=== PATIENT | female | born 1930 | race American Indian/Alaskan Native ===

== ENCOUNTER 2017-01-09 19:54 | Inpatient (IN) | payer MEDICARE ==
[2017-01-09 21:18] LABS: Basophils % (Auto) 0.6 % (0.0-1.8); Eosinophils % (Auto) 2.1 % (0.0-4.3); Hematocrit 29.2 % (30.3-42.9); Hemoglobin 9.5 gm/dl (10.1-14.3); Mean Corpuscular HGB Conc 32 % (30-34); Mean Corpuscular Hemoglobin 28 pg (28-32); Mean Corpuscular Volume 86 fl (79-97); Platelet Count 392 K/mm3 (140-440); Red Blood Count 3.38 M/mm3 (3.65-5.03); Red Cell Distribution Width 15.3 % (13.2-15.2); White Blood Count 7.5 K/mm3 (4.5-11.0)
--- NOTE | 2017-01-09 21:25 | Emergency Department Report ---
ED Neuro Deficit HPI - General Chief Complaint: Medical Clearance Stated Complaint: MEDICAL CLEARANCE Time Seen by Provider: 01/09/17 20:25 Source: EMS Mode of arrival: Stretcher Limitations: Physical Limitation - History of Present Illness Initial Comments: 86-year-old female with a past medical history diabetes, GERD, hypertension and recent left knee replacement presents to the hospital with transient altered mental status. Patient had left knee surgery on December 24. On December 27 she was discharged into rehabilitation facility. Daughter is at the bedside and states she was in the presence of her mom at the rehabilitation facility at 11 AM when she started to have incomprehensible speech. Patient was motioning to her daughter to check her sugar. Daughter called out to staff but prior to staff arrival to the bedside and placed a glucose tablet on the patient's tongue. Upon staff arrival glucose tablet was undissolved patient was giving a little water to help dissolve the tablet. 10 minutes later Accu-Chek read 200. Mumbling and incomprehensible speech improved and therefore patient was not sent to the ED for evaluation. Later in the evening patient had another episode of a incomprehensible speech. Glucose was not checked and instead pt was sent to the ER for evaluation. Daughter and son at the bedside reports that patient's speech has improved but is not back to normal. Patient was on aspirin prior to surgery and family is not sure if it has been reinitiated. Rehabilitation M.Rafael. started Plavix after episode today. Family denies previous history of CVA or previous Plavix use. - Related Data Home Medications: Home Medications Medication Instructions Recorded Confirmed Last Taken Aspirin/Calcium Carbonate/Mag 325 cap PO BID 01/09/17 01/09/17 1 Day Ago [Bufferin 325 mg Tablet] Docusate Sodium [Colace] 100 mg PO BID 01/09/17 01/09/17 1 Day Ago Gabapentin [Neurontin] 100 mg PO BID 01/09/17 01/09/17 1 Day Ago Insulin Lispro [HumaLOG VIAL] 1 unit SUB-Q BID 01/09/17 01/09/17 1 Day Ago RX: AtorvaSTATin [Lipitor] 20 mg PO QHS 01/09/17 01/09/17 1 Day Ago RX: Insulin NPH, Human [NovoLIN N] 10 unit PO QAM 01/09/17 01/09/17 2 Days Ago cloNIDine [Catapres] 0.2 mg PO BID 01/09/17 01/09/17 1 Day Ago Allergies/Adverse Reactions: Allergies Allergy/AdvReac Type Severity Reaction Status Date / Time No Known Allergies Allergy Unverified 01/09/17 20:12 ED Review of Systems ROS: Stated complaint: MEDICAL CLEARANCE Other details as noted in HPI Comment: All other systems reviewed and negative Other: Constitutional: No fevers Neck: Denies pain Respiratory: Denies cough wheezing shortness of breath Cardiovascular: Denies chest pain GI: Denies abdominal pain, nausea, vomiting, diarrhea : Denies dysuria Musculoskeletal: post op left knee pain Skin: Denies rash, lesions, erythema Neurologic: Denies headache ED Past Medical Hx - Past Medical History Previous Medical History?: Yes Hx Hypertension: Yes Hx CVA: No Hx Heart Attack/AMI: No Hx Congestive Heart Failure: No Hx Diabetes: Yes Hx Deep Vein Thrombosis: No Hx Pulmonary Embolism: No Hx GERD: Yes Hx Liver Disease: No Hx Renal Disease: No Hx of Cancer: No Hx Sickle Cell Disease: No Hx Arthritis: No Hx Headaches / Migraines: No Hx Seizures: No Hx Kidney Stones: No Hx Psychiatric Treatment: No Hx Asthma: No Hx COPD: No Hx Dementia: No Hx HIV: No - Surgical History Past Surgical History?: Yes Additional Surgical History: Left Knee surgery december 2016. Right knee replacement - Social History Smoking Status: Never Smoker Substance Use Type: None - Medications Home Medications: Home Medications Medication Instructions Recorded Confirmed Last Taken Type Aspirin/Calcium Carbonate/Mag 325 cap PO BID 01/09/17 01/09/17 1 Day Ago History [Bufferin 325 mg Tablet] Docusate Sodium [Colace] 100 mg PO BID 01/09/17 01/09/17 1 Day Ago History Gabapentin [Neurontin] 100 mg PO BID 01/09/17 01/09/17 1 Day Ago History Insulin Lispro [HumaLOG VIAL] 1 unit SUB-Q BID 01/09/17 01/09/17 1 Day Ago History RX: AtorvaSTATin [Lipitor] 20 mg PO QHS 01/09/17 01/09/17 1 Day Ago History RX: Insulin NPH, Human [NovoLIN N] 10 unit PO QAM 01/09/17 01/09/17 2 Days Ago History cloNIDine [Catapres] 0.2 mg PO BID 01/09/17 01/09/17 1 Day Ago History ED Neuro Physical Exam - General Limitations: Physical Limitation Suspected Stroke: Yes - NIHSS Assessment Interval: Baseline 1a. Level of Consciousness: alert 1b. LOC Questions: answers correctly 1c. LOC Commands: performs tasks correctly 2. Best Gaze: normal 3. Visual: no visual loss 4. Facial Palsy: normal symmetrical movement 5b. Motor Arm Right: no drift 5a. Motor Arm Left: no drift 6a. Motor Leg Left: no drift 6b. Motor Leg Right: no drift 7. Limb Ataxia: absent 8. Sensory: normal 9. Best Language: no aphasia 10. Dysarthria: normal 11. Extinction/Inattention: no abnormality Total Score: 0 Stroke Severity: No Stroke Symptoms - Other Other exam information: General: No limitations, patient is alert in no acute distress Head exam: Atraumatic, normocephalic Eyes exam: Normal appearance ENT: Moist mucous membrane, normal oropharynx Neck exam: Normal inspection, full range of motion, no meningismus nontender Respiratory exam: Clear to auscultation bilateral, no wheezes, rales, crackles Cardiovascular: Normal rate and rhythm, normal heart sounds Abdomen: Soft, nondistended, and nontender, with normal bowel sounds, no rebound, or guarding Extremity: Full range of motion normal inspection no deformity Back: Normal Inspection, full range of motion, no tenderness Neurologic: Alert, oriented x3, cranial nerves intact, no motor or sensory deficit Psychiatric: normal affect, normal mood Skin: Warm, dry, intact ED Course Vital Signs 01/09/17 01/09/17 20:03 22:22 Temperature 98.7 F Pulse Rate 73 Respiratory 18 Rate Blood Pressure 143/63 Blood Pressure 143/63 [Left] O2 Sat by Pulse 99 98 Oximetry - Reevaluation(s) Reevaluation #1: 01/09/17 22:34 No focal deficits on exam. Family insisted patient's mental status is not at baseline. They report that she is typically more talkative and joking but her energy level is decreased today. Patient states she's not speaking as fluently as normal. - Lab Data Result diagrams: 01/09/17 20:58 01/09/17 20:58 Lab Results 01/09/17 01/09/17 01/09/17 Range/Units 20:31 20:58 20:58 WBC 7.5 (4.5-11.0) K/mm3 RBC 3.38 L (3.65-5.03) M/mm3 Hgb 9.5 L (10.1-14.3) gm/dl Hct 29.2 L (30.3-42.9) % MCV 86 (79-97) fl MCH 28 (28-32) pg MCHC 32 (30-34) % RDW 15.3 H (13.2-15.2) % Plt Count 392 (140-440) K/mm3 Lymph % (Auto) 21.1 (13.4-35.0) % [place] % (Auto) 8.1 H (0.0-7.3) % Eos % (Auto) 2.1 (0.0-4.3) % Baso % (Auto) 0.6 (0.0-1.8) % Lymph # 1.6 (1.2-5.4) K/mm3 [place] # 0.6 (0.0-0.8) K/mm3 Eos # 0.2 (0.0-0.4) K/mm3 Baso # 0.0 (0.0-0.1) K/mm3 Seg Neutrophils % 68.1 (40.0-70.0) % Seg Neutrophils # 5.1 (1.8-7.7) K/mm3 PT (12.2-14.9) Sec. INR (0.87-1.13) APTT (24.2-36.6) Sec. Sodium 130 L (137-145) mmol/L Potassium 4.4 (3.6-5.0) mmol/L Chloride 92.9 L (98-107) mmol/L Carbon Dioxide 22 (22-30) mmol/L Anion Gap 20 mmol/L BUN 29 H (7-17) mg/dL Creatinine 0.9 (0.7-1.2) mg/dL Estimated GFR > 60 ml/min BUN/Creatinine Ratio 32.22 % Glucose 152 H (65-100) mg/dL POC Glucose 178 H (70-105) Calcium 8.9 (8.4-10.2) mg/dL Total Creatine Kinase (30-135) units/L CK-MB (CK-2) (0.0-4.0) ng/mL CK-MB (CK-2) Rel Index (0-4) Troponin T (0.00-0.029) ng/mL Urine Color (Yellow) Urine Turbidity (Clear) Urine pH (5.0-7.0) Ur Specific [place] (1.003-1.030) Urine Protein (Negative) mg/dL Urine Glucose (UA) (Negative) mg/dL Urine Ketones (Negative) mg/dL Urine Blood (Negative) Urine Nitrite (Negative) Urine Bilirubin (Negative) Urine Urobilinogen (<2.0) mg/dL Ur Leukocyte Esterase (Negative) Urine WBC (Auto) (0.0-6.0) /HPF Urine RBC (Auto) (0.0-6.0) /HPF 01/09/17 01/09/17 01/09/17 Range/Units 20:58 20:58 21:51 WBC (4.5-11.0) K/mm3 RBC (3.65-5.03) M/mm3 Hgb (10.1-14.3) gm/dl Hct (30.3-42.9) % MCV (79-97) fl MCH (28-32) pg MCHC (30-34) % RDW (13.2-15.2) % Plt Count (140-440) K/mm3 Lymph % (Auto) (13.4-35.0) % [place] % (Auto) (0.0-7.3) % Eos % (Auto) (0.0-4.3) % Baso % (Auto) (0.0-1.8) % Lymph # (1.2-5.4) K/mm3 [place] # (0.0-0.8) K/mm3 Eos # (0.0-0.4) K/mm3 Baso # (0.0-0.1) K/mm3 Seg Neutrophils % (40.0-70.0) % Seg Neutrophils # (1.8-7.7) K/mm3 PT 13.1 (12.2-14.9) Sec. INR 1.00 (0.87-1.13) APTT 22.0 L (24.2-36.6) Sec. Sodium (137-145) mmol/L Potassium (3.6-5.0) mmol/L Chloride (98-107) mmol/L Carbon Dioxide (22-30) mmol/L Anion Gap mmol/L BUN (7-17) mg/dL Creatinine (0.7-1.2) mg/dL Estimated GFR ml/min BUN/Creatinine Ratio % Glucose (65-100) mg/dL POC Glucose (70-105) Calcium (8.4-10.2) mg/dL Total Creatine Kinase 91 (30-135) units/L CK-MB (CK-2) 3.2 (0.0-4.0) ng/mL CK-MB (CK-2) Rel Index 3.5 (0-4) Troponin T 0.025 (0.00-0.029) ng/mL Urine Color Yellow (Yellow) Urine Turbidity Clear (Clear) Urine pH 5.0 (5.0-7.0) Ur Specific [place] 1.009 (1.003-1.030) Urine Protein <15 mg/dl (Negative) mg/dL Urine Glucose (UA) Neg (Negative) mg/dL Urine Ketones Neg (Negative) mg/dL Urine Blood Neg (Negative) Urine Nitrite Neg (Negative) Urine Bilirubin Neg (Negative) Urine Urobilinogen < 2.0 (<2.0) mg/dL Ur Leukocyte Esterase Neg (Negative) Urine WBC (Auto) 0.0 (0.0-6.0) /HPF Urine RBC (Auto) 0.0 (0.0-6.0) /HPF - EKG Data -: EKG Interpreted by Me (nsr [id number]) - Radiology Data Radiology results: report reviewed (ct head: chronic involutional changes, naf) - Medical Decision Making No focal deficits on exam. Labs indicate mild dehydration as evident by elevated BUN and mild hyponatremia. No signs of acute infection or intracranial hemorrhage at this time. Since family states mental status is not at baseline will admit to the hospital. IV fluids initiated. - Differential Diagnosis cva, tia, uti, hypoglycemia, encephalopathy Critical Care Time: No Critical care attestation.: If time is entered above; I have spent that time in minutes in the direct care of this critically ill patient, excluding procedure time. ED Disposition Clinical Impression: Transient speech disturbance, Diabetes, Dehydration, Hyponatremia, Anemia Disposition: OP ADMITTED IP TO THIS HOSP Is pt being admited?: Yes Condition: Stable Time of Disposition: 22:41 (Dr Tucker/hosp)
[2017-01-09 21:27] LABS: Anion Gap 20 mmol/L; BUN/Creatinine Ratio 32.22; Blood Urea Nitrogen 29 mg/dL (7-17); Calcium 8.9 mg/dL (8.4-10.2); Carbon Dioxide 22 mmol/L (22-30); Chloride 92.9 mmol/L (98-107); Glucose 152 mg/dL (65-100); Potassium 4.4 mmol/L (3.6-5.0); Sodium 130 mmol/L (137-145)
[2017-01-09 21:29] LABS: Creatine Kinase MB 3.2 ng/mL (0.0-4.0)
--- NOTE | 2017-01-09 21:38 | Cat Scan Report ---
FINAL REPORT PROCEDURE: CT HEAD/BRAIN WO CON TECHNIQUE: Computerized tomography of the head was performed without contrast material. HISTORY: slurred speech COMPARISON: No prior studies are available for comparison. FINDINGS: Skull and scalp: Normal. Paranasal sinuses: Normal. Ventricles and subarachnoid spaces: There is moderate central and cortical atrophy. There is no hydrocephalus or asymmetry.. Cerebrum: No evidence of hemorrhage, acute infarction or mass. There is chronic periventricular deep white matter ischemic gliosis. Cerebellum and brainstem: No evidence of hemorrhage, acute infarction or mass. Vasculature: Normal. Comments: None. IMPRESSION: There are chronic involutional changes. There is no acute abnormality.
[2017-01-09 22:00] LABS: Bilirubin,Urine NEG (Negative); Blood,Urine NEG (Negative); Ketones,Urine NEG (Negative); Leukocyte Esterase,Urine NEG (Negative); Nitrite,Urine NEG (Negative); Protein,Urine <15 mg/dL mg/dL (Negative); Urobilinogen,Urine < 2.0 mg/dL (<2.0)
[2017-01-09] MEDS ORDERED: NACL 0.9% 1000 ML 1,000 ML IV ONE (22:32)
--- NOTE | 2017-01-09 22:56 | History and Physical Report ---
History of Present Illness Date of examination: 01/09/17 Chief complaint: Slurred speech History of present illness: 86-year-old [place] female with past medical history significant for diabetes, GERD, hypertension, recent left knee replacement [facility] for complaints of transient slurred speech and confusion. The patient has 2 episodes. The first one happened yesterday around 11 AM and the patient thinks it was hypoglycemia and she was given glucose tablets and her blood sugar was checked and was found to be around 206. Patient was getting better. And around 6 PM the patient had also another episode of slurred speech, incoherent with some confusion that was f0r 5-10 minutes. The family decided to both to the emergency department. The family stated after stated her speech is getting better but the patient is in not at her baseline. REVIEW OF SYSTEMS: GENERAL: no weight change, no fatigue, no fever HEAD: no head ache EYES: no blurry vision, no acute visual loss EARS: no hearing loss, no discharge, no earache NOSE: no stuffiness, no sneezing, no discharge MOUTH, THROAT AND NECK: no bleeding gums, no sore throat, no swollen neck CARDIAC: no palpitations, no dyspnea on exertion, no orthopnea, no PND, no edema , no chest pain RESPIRATORY: no shortness of breath, no wheeze, no cough, no sputum, no hemoptysis, no asthma GI: no decreased appetite, no nausea, no vomiting, no dysphagia, no diarrhea, no constipation, no abdominal pain URINARY: no change in frequency, no urgency, no polyuria, no hematuria, no incontinence MUSCULOSKELETAL: no muscle weakness, no pain, no joint stiffness NEUROLOGIC: no loss of sensation/numbness, no tingling, no tremors, no weakness/ paralysis HEMATOLOGIC: no anemia, no easy bruising SKIN: no rashes ENDOCRINE: no heat/cold intolerance, no polyuria, no polydipsia, no thyroid problems, no diabetes PSYCHIATRIC: no anxiety, no depression, no suicidal ideations Past History Past Medical History: diabetes, GERD, hypertension Past Surgical History: Other (bilatertal knee replacement) Social history: full code. denies: smoking, alcohol abuse, prescription drug abuse, IV drug use Family history: denies: no significant family history Medications and Allergies Allergies Allergy/AdvReac Type Severity Reaction Status Date / Time No Known Allergies Allergy Unverified 01/09/17 20:12 Home Medications Medication Instructions Recorded Confirmed Last Taken Type Aspirin/Calcium Carbonate/Mag 325 cap PO BID 01/09/17 01/09/17 1 Day Ago History [Bufferin 325 mg Tablet] AtorvaSTATin [Lipitor] 20 mg PO QHS 01/09/17 01/09/17 1 Day Ago History Docusate Sodium [Colace] 100 mg PO BID 01/09/17 01/09/17 1 Day Ago History Gabapentin [Neurontin] 100 mg PO BID 01/09/17 01/09/17 1 Day Ago History Insulin Lispro [HumaLOG VIAL] 1 unit SUB-Q BID 01/09/17 01/09/17 1 Day Ago History Insulin NPH, Human [NovoLIN N] 10 unit PO QAM 01/09/17 01/09/17 2 Days Ago History cloNIDine [Catapres] 0.2 mg PO BID 01/09/17 01/09/17 1 Day Ago History Active Meds: Active Medications Sodium Chloride (Nacl 0.9% 1000 Ml) 1,000 mls @ 200 mls/hr IV BOLUS ONE Stop: 01/10/17 03:31 Exam - Physical Exam Narrative exam: Not in cardiopulmonary distress. The patient appeared well nourished and normally developed. Vital signs as documented. Head exam is unremarkable. No scleral icterus . Neck is without jugular venous distension, thyromegaly, or carotid bruits. Lungs are clear to auscultation. Cardiac exam reveals regular rate and Rhythm. First and second heart sounds normal. No murmurs, rubs or gallops. Abdominal exam reveals normal bowel sounds, no masses, no organomegaly and no aortic enlargement. Extremities are nonedematous and both femoral and pedal pulses are normal. [employer]: Alert and oriented 3. No focal weakness. - Constitutional Vitals: Temp Pulse Resp BP Pulse Ox 98.7 F 73 18 143/63 98 01/09/17 20:03 01/09/17 20:03 01/09/17 20:03 01/09/17 20:03 01/09/17 22:22 Results - Labs CBC & Chem 7: 01/09/17 20:58 01/09/17 20:58 Labs: Laboratory Last Values WBC 7.5 K/mm3 (4.5-11.0) 01/09/17 20:58 RBC 3.38 M/mm3 (3.65-5.03) L 01/09/17 20:58 Hgb 9.5 gm/dl (10.1-14.3) L 01/09/17 20:58 Hct 29.2 % (30.3-42.9) L 01/09/17 20:58 MCV 86 fl (79-97) 01/09/17 20:58 MCH 28 pg (28-32) 01/09/17 20:58 MCHC 32 % (30-34) 01/09/17 20:58 RDW 15.3 % (13.2-15.2) H 01/09/17 20:58 Plt Count 392 K/mm3 (140-440) 01/09/17 20:58 Lymph % (Auto) 21.1 % (13.4-35.0) 01/09/17 20:58 [place] % (Auto) 8.1 % (0.0-7.3) H 01/09/17 20:58 Eos % (Auto) 2.1 % (0.0-4.3) 01/09/17 20:58 Baso % (Auto) 0.6 % (0.0-1.8) 01/09/17 20:58 Lymph # 1.6 K/mm3 (1.2-5.4) 01/09/17 20:58 [place] # 0.6 K/mm3 (0.0-0.8) 01/09/17 20:58 Eos # 0.2 K/mm3 (0.0-0.4) 01/09/17 20:58 Baso # 0.0 K/mm3 (0.0-0.1) 01/09/17 20:58 Seg Neutrophils % 68.1 % (40.0-70.0) 01/09/17 20:58 Seg Neutrophils # 5.1 K/mm3 (1.8-7.7) 01/09/17 20:58 PT 13.1 Sec. (12.2-14.9) 01/09/17 20:58 INR 1.00 (0.87-1.13) 01/09/17 20:58 APTT 22.0 Sec. (24.2-36.6) L 01/09/17 20:58 Sodium 130 mmol/L (137-145) L 01/09/17 20:58 Potassium 4.4 mmol/L (3.6-5.0) 01/09/17 20:58 Chloride 92.9 mmol/L (98-107) L 01/09/17 20:58 Carbon Dioxide 22 mmol/L (22-30) 01/09/17 20:58 Anion Gap 20 mmol/L 01/09/17 20:58 BUN 29 mg/dL (7-17) H 01/09/17 20:58 Creatinine 0.9 mg/dL (0.7-1.2) 01/09/17 20:58 Estimated GFR > 60 ml/min 01/09/17 20:58 BUN/Creatinine Ratio 32.22 % 01/09/17 20:58 Glucose 152 mg/dL (65-100) H 01/09/17 20:58 POC Glucose 178 (70-105) H 01/09/17 20:31 Calcium 8.9 mg/dL (8.4-10.2) 01/09/17 20:58 Total Creatine Kinase 91 units/L (30-135) 01/09/17 20:58 CK-MB (CK-2) 3.2 ng/mL (0.0-4.0) 01/09/17 20:58 CK-MB (CK-2) Rel Index 3.5 (0-4) 01/09/17 20:58 Troponin T 0.025 ng/mL (0.00-0.029) 01/09/17 20:58 Urine Color Yellow (Yellow) 01/09/17 21:51 Urine Turbidity Clear (Clear) 01/09/17 21:51 Urine pH 5.0 (5.0-7.0) 01/09/17 21:51 Ur Specific [place] 1.009 (1.003-1.030) 01/09/17 21:51 Urine Protein <15 mg/dl mg/dL (Negative) 01/09/17 21:51 Urine Glucose (UA) Neg mg/dL (Negative) 01/09/17 21:51 Urine Ketones Neg mg/dL (Negative) 01/09/17 21:51 Urine Blood Neg (Negative) 01/09/17 21:51 Urine Nitrite Neg (Negative) 01/09/17 21:51 Urine Bilirubin Neg (Negative) 01/09/17 21:51 Urine Urobilinogen < 2.0 mg/dL (<2.0) 01/09/17 21:51 Ur Leukocyte Esterase Neg (Negative) 01/09/17 21:51 Urine WBC (Auto) 0.0 /HPF (0.0-6.0) 01/09/17 21:51 Urine RBC (Auto) 0.0 /HPF (0.0-6.0) 01/09/17 21:51 Assessment and Plan Assessment and plan: TIA -CT head was negative - We will do workup for stroke ; bilateral carotid Doppler , MRI, echo - Continue patient's Plavix and aspirin Diabetes mellitus type 2 - Sliding-scale insulin GERD - Famotidine Hypertension - Continue home medication Anemia - Continue to follow Dehydration -IV fluid DVT prophylaxis - Lovenox Disposition - Admitted to telemetry. Advance Directives: Yes VTE prophylaxis?: Chemical Plan of care discussed with patient/family: Yes
--- NOTE | 2017-01-10 01:19 | Admit Criteria Form ---
Admission Criteria Documentation: NEUROLOGY GRG Clinical Indications for Admission to Inpatient Care (Place ' X' for any and all applicable criteria): Hospital admission is needed for appropriate care of the patient because of ANY ONE of the following: [ ]I. New-onset or worsening altered mental status remaining after emergency or observation level care (as appropriate) (9)(10)(11) [ ]II. Severe FLOUR MIXER infections or inflammatory conditions, including ANY ONE of the following(1)(2)(3): [ ]a) Intracranial abscess [ ]b) Spinal abscess or myelitis [ ]c) Tuberculous or other nonbacterial, nonviral FLOUR MIXER infection(8) [ ]III. Encephalitis(1)(2)(3) [ ]IV. Status epilepticus or repetitive seizures not controlled with emergent treatment [A] (7)(8) [ ]V. Transient alteration in consciousness with high-risk etiology; examples include (12)(13): [ ]a) Cardiovascular source [ ]b) Cataplexy [ ]. Cerebral aneurysm requiring ANY ONE of the following(14): [ ]a) IV antihypertensives or vasoactive agents [ ]b) Sedation and analgesia for suspected leak [ ]c) Need for external ventricular drainage and cerebral perfusion pressure monitoring [ ]d) Emergent evaluation to determine need for surgical clipping or endovascular coiling by interventional radiology. If surgery is required ( Also use Craniotomy, Supratentorial, for Surgery of Bleeding Intracranial Aneurysm (for bleeding aneurysm) or Craniotomy, Supratentorial (for nonbleeding aneurysm) as appropriate. [ ]VII. Altered mental status that is severe or persistent(16) [ ]VIII New-onset severe neurologic findings requiring inpatient care; examples include: [ ]a) Papilledema [ ]b) Cerebral edema [ ]c) Mass effect on imaging [ ]IX. New-onset severe neurologic symptom requiring inpatient care indicated by ANY ONE of the following: [ ]a) Aphasia(15) [ ]b) Weakness (grade 3 or less) [ ]c) Paralysis (eg, hemiplegia) [ ]d) Spasticity(16) [ ]e) Ataxia(17) [ ]f) Amnesia(18) [ ]g) Involuntary movements(19) [ ]h) Vertigo [ ]i) Other severe neurologic symptom not treatable at alternative level of care (eg, observation care) [ ]X. Guillain-Oacoma syndrome(20) [ ]XI. Myasthenia gravis crisis or inpatient monitoring need as indicated by ANY ONE of the following(21): [ ]a) Inadequate airway protection [ ]b) Respiratory insufficiency requiring intubation or inpatient. monitoring [ ]c) Progressive dysphagia with failure to thrive [ ]d) Intensive treatment (eg, course of plasmapheresis) with inadequate outpatient situation to monitor patients status [ ]XII. Multiple sclerosis or other acute demyelinating disease requiring inpatient care as indicated by ANY ONE of the following (22)(23): [ ]a) Acute severe deterioration requiring inpatient treatment (eg, IV steroids, plasmapheresis, close observation) [ ]b) Acute complication requiring inpatient care (eg, sepsis, severe decubitus, aspiration) [ ]XIII. Intracranial hypertension (eg, pseudotumor cerebri) requiring inpatient care (eg, acute visual loss, inadequate oral intake) (24) [ ]XIV.Parkinson disease requiring inpatient care (Also use Optimal Recovery Care Criteria or General Recovery Criteria as appropriate) indicated by ANY ONE of the following(25): [ ]a) Infection (eg, aspiration pneumonia) not treatable at alternative level of care [ ]b) Volume depletion not responsive to emergency and observation care treatment (as appropriate) [ ]c) Life-threatening agitation or psychotic behavior not treatable on emergency, observation care, or alternative level (eg, residential) basis [ ]d) Severe medication withdrawal effects (eg, freezing, neuroleptic malignant syndrome) not responsive to emergency and observation care treatment (as appropriate) [ ]e) Other severe manifestation not treatable at alternative level of care [ ]XV.Amyotrophic lateral sclerosis with inpatient care needs as indicated by ANY ONE of the following(26): [ ]a) Acute complications requiring inpatient care (Use Optimal Recovery Care Criteria or General Recovery Criteria as appropriate); examples include: [ ]i) Aspiration pneumonia [ ]ii) Sepsis [ ]b) Dehydration or hypovolemia (not responsive to emergency and observation care treatment as appropriate) AND artificial support desired [ ]c) Inadequate airway protection AND artificial support desired [ ]d) Severe ventilatory insufficiency AND artificial support desired [ ]XVI.Severe myopathy, neuropathy, or other neuromuscular disease as indicated by ANY ONE of the following: [ ]a) New-onset severe diffuse weakness (eg, strength 3/5 or less) [ ]b) Severe dysphagia [ ]c) Dyspnea at rest or with minimal exertion (new) [ ]d) Inadequate airway protection [ ]e) Inadequate ventilation as indicated by ANY ONE of the following : [ ]i) Partial pressure of carbon dioxide greater than 44 mm Hg (5.9 kPa) (new) [ ]ii) Reduced peak expiratory flow rate (new) [ ]iii) Vital capacity less than 50% of predicted ( less than 15 mL/kg) [ ]iv) Peak inspiratory force less negative than -30 cm H20 (-2942 Pa) [ ]XVII.Complications of congenital or degenerative disease (eg, infection, seizures, dehydration, injury) not responsive to emergency and observation care treatment (as appropriate ) [C](16)(29)(30) [ ]XVIII.Suspected or confirmed nerve or muscle toxic injury, including ANY ONE of the following: [ ]a) Rhabdomyolysis(31) [ ]b) Botulism(32) [ ]c) Other severe toxin-induced sign or symptom [ X]XIX. Neurologic trauma requiring inpatient treatment (medical) indicated by ANY ONE of the following(33)(34): [ ]a) Vital signs or neurologic signs more frequently than every 4 hours [ ]b) Hyperosmolar therapy [ ]c) Respiratory monitoring [ ]d) Intracranial pressure monitoring and treatment [ ]e) Stabilization and immobilization device placement (eg, braces, body jacket) [ ]f) Intubation & mechanical ventilation for airway protection or therapeutic hyperventilation [X ]g) Other treatment or monitoring needed that requires inpatient level of care [ ]XX.Complications of neurologic devices (eg, ventricular shunt, neurostimulator) requiring ANY ONE of the following(35)(36): [ ]a) IV antibiotics with monitoring while awaiting culture results [ ]b) Monitoring for hydrocephalus [ ]XXI Vasculitis with ANY ONE of the following(4)(5): [ ]a) Altered mental status [ ]b) Psychosis [ ]c) Seizures [ ]XXII. Neurology condition and ALL of the following: [ ]a) Symptom or finding for which emergency and observation care have failed or are not considered appropriate (Use General Criteria: Observation Care as appropriate) [ ]b) Presence of ANY ONE of the following: [ ]i) A General Admission Criteria [ ]ii A Pediatric General Admission Criteria The original [facility] content created by [facility] has been revised. The portions of the content which have been revised are identified through the use of italic text or in bold, and [facility] has neither reviewed nor approved the modified material. All other unmodified content is copyright [facility] Please see references footnoted in the original [facility] edition 2016 Admission Criteria Met: Yes
[2017-01-10] MEDS ORDERED: D50W (25GM) IV PRN (02:06)
[2017-01-10] MEDS: LOVENOX SUB-Q SCH (10:35)
[2017-01-10] MEDS ORDERED: FLUARIX QUAD 2016-2017(36 MOS+) IM ONE (12:00)
[2017-01-10] MEDS ORDERED: PNEUMOVAX 23 IM ONE (12:00)
--- NOTE | 2017-01-10 14:03 | Magnetic Resonance Report ---
MRA HEAD WITHOUT CONTRAST INDICATION: CVA. COMPARISON: None similar. FINDINGS: MRA of the head performed without intravenous contrast and demonstrates no evidence of flow-limiting stenosis, occlusion or vascular malformation. Please note that detection of aneurysms less than 5 mm is limited on this exam. Bilateral PCOMs noted. Patent vertebrobasilar tree with left vertebral artery dominant. CONCLUSION: Normal study of the [place]. Thank you for the opportunity to participate in this patient's care.
--- NOTE | 2017-01-10 14:15 | Magnetic Resonance Report ---
MRA NECK WITH CONTRAST: INDICATION: CVA. COMPARISON: None similar. FINDINGS: Noncontrast MRA of the neck attempted, though extremely limited due to motion artifact. Aortic arch not included. Imaged innominate and subclavian arteries appear grossly patent as also bilateral vertebral arteries. Left vertebral artery dominant. Patent bilateral common and internal carotid arteries without significant carotid stenosis suspected. Bilateral external carotid atherosclerotic changes not excluded. Moderate right and small left pleural effusions incidentally noted. CONCLUSION: 1. Normal MRA of the neck without significant stenosis on this limited exam, as described. Please also correlate clinically and with carotid ultrasound, as appropriate. 2. Right greater than left pleural effusions. Thank you for the opportunity to participate in this patient's care.
--- NOTE | 2017-01-10 14:18 | Magnetic Resonance Report ---
MRI BRAIN WITHOUT CONTRAST INDICATION: TIA. COMPARISON: Head CT from last night. FINDINGS: Noncontrast multiplanar and multisequence MRI of the brain demonstrates small right frontal-temporal subcortical acute restricted diffusion with the linear component measuring approximately 1.4 cm, axial diffusion series 4, image 24 while small right frontal deeper white matter foci also seen, images 25-27 measuring up to 0.7 cm, image 26. No acute hemorrhage, mass effect or midline shift. No abnormal extra axial masses or fluid collections. Symmetric, age-appropriate ventricles and sulci with [id number] periventricular and white matter FLAIR and T2 weighted hyperintensities. Normal major intracranial vascular flow voids. Normal posterior fossa with preserved basilar cisterns and symmetric seventh and eighth nerve complexes. Bilateral cataract surgery. Mild ethmoid sinusitis bilaterally. Grossly clear remained imaged paranasal sinuses and mastoid air cells. Partially empty sella. No Chiari malformation. Abnormal signal along the dens near its base suspected with mild anterior angulation and increased surrounding complex or soft tissue signal is suspicious for a fracture, though its age or etiology uncertain on this imaging alone. Corresponding similar angulated course of the proximal cord also seen as on sagittal image 11, amongst others. Further lower cervical spondylosis also incompletely imaged. CONCLUSION: 1. Acute infarctions involving the right frontal lobe, as described. 2. Abnormal MRI appearance about the atlantoaxial junction, as described. Neck stabilization and neurosurgical correlation may also be obtained, as appropriate. Dedicated cervical spine CT would be further informative, if not previously obtained elsewhere. I phoned the above results to Dr. Rodriguez, 1:45 PM, 01/10/2017. Thank you for the opportunity to participate in this patient's care.
--- NOTE | 2017-01-10 14:37 | Progress Note ---
Assessment and Plan Assessment and plan: 1. Acute CVA. MRI revealed acute infarctions involving the right frontal lobe. Normal MRA echocardiogram and carotid Dopplers are pending. 2. C2 fracture. MRI reveals abnormal signal along the denssuspected with mild anterior angulation and increase surrounding complex or soft tissue signal suspicious for a fracture. We'll obtain a cervical CT scan. Cervical collar. Neurosurgical evaluation. 3. Diabetes mellitus type II. Continue sliding-scale and Accu-Cheks. 4. Hypertension. Resume antihypertensive medications. 5. Anemia. Continue to follow H&H. History Interval history: 86-year-old Citizen Of [place] female with past medical history significant for diabetes, GERD, hypertension, recent left knee replacement presented from the correction to the emergency department for complaints of transient slurred speech and confusion. Patient was admitted with diagnosis of acute CVA. Hospitalist Physical - Constitutional Vitals: Temp Pulse Resp BP Pulse Ox 98.2 F 82 14 142/70 98 01/10/17 07:34 01/10/17 07:34 01/10/17 07:34 01/10/17 07:34 01/10/17 07:34 General appearance: Present: no acute distress, well-nourished - EENT Eyes: Present: PERRL, EOM intact ENT: hearing intact, clear oral mucosa, dentition normal - Neck Neck: Present: supple, normal ROM - Respiratory Respiratory effort: normal Respiratory: bilateral: CTA - Cardiovascular Rhythm: regular Heart Sounds: Present: S1 & S2. Absent: gallop, rub - Extremities Extremities: no ischemia, No edema, Full ROM - Abdominal General gastrointestinal: soft, non-tender, non-distended, normal bowel sounds - Integumentary Integumentary: Present: clear, warm, dry - Neurologic Neurologic: CNII-XII intact, moves all extremities Results - Labs CBC & Chem 7: 01/09/17 20:58 01/09/17 20:58 Labs: Laboratory Last Values WBC 7.5 K/mm3 (4.5-11.0) 01/09/17 20:58 RBC 3.38 M/mm3 (3.65-5.03) L 01/09/17 20:58 Hgb 9.5 gm/dl (10.1-14.3) L 01/09/17 20:58 Hct 29.2 % (30.3-42.9) L 01/09/17 20:58 MCV 86 fl (79-97) 01/09/17 20:58 MCH 28 pg (28-32) 01/09/17 20:58 MCHC 32 % (30-34) 01/09/17 20:58 RDW 15.3 % (13.2-15.2) H 01/09/17 20:58 Plt Count 392 K/mm3 (140-440) 01/09/17 20:58 Lymph % (Auto) 21.1 % (13.4-35.0) 01/09/17 20:58 [place] % (Auto) 8.1 % (0.0-7.3) H 01/09/17 20:58 Eos % (Auto) 2.1 % (0.0-4.3) 01/09/17 20:58 Baso % (Auto) 0.6 % (0.0-1.8) 01/09/17 20:58 Lymph # 1.6 K/mm3 (1.2-5.4) 01/09/17 20:58 [place] # 0.6 K/mm3 (0.0-0.8) 01/09/17 20:58 Eos # 0.2 K/mm3 (0.0-0.4) 01/09/17 20:58 Baso # 0.0 K/mm3 (0.0-0.1) 01/09/17 20:58 Seg Neutrophils % 68.1 % (40.0-70.0) 01/09/17 20:58 Seg Neutrophils # 5.1 K/mm3 (1.8-7.7) 01/09/17 20:58 PT 13.1 Sec. (12.2-14.9) 01/09/17 20:58 INR 1.00 (0.87-1.13) 01/09/17 20:58 APTT 22.0 Sec. (24.2-36.6) L 01/09/17 20:58 Sodium 130 mmol/L (137-145) L 01/09/17 20:58 Potassium 4.4 mmol/L (3.6-5.0) 01/09/17 20:58 Chloride 92.9 mmol/L (98-107) L 01/09/17 20:58 Carbon Dioxide 22 mmol/L (22-30) 01/09/17 20:58 Anion Gap 20 mmol/L 01/09/17 20:58 BUN 29 mg/dL (7-17) H 01/09/17 20:58 Creatinine 0.9 mg/dL (0.7-1.2) 01/09/17 20:58 Estimated GFR > 60 ml/min 01/09/17 20:58 BUN/Creatinine Ratio 32.22 % 01/09/17 20:58 Glucose 152 mg/dL (65-100) H 01/09/17 20:58 POC Glucose 178 (70-105) H 01/09/17 20:31 Hemoglobin A1c 9.1 % (4-6) H 01/10/17 02:21 Calcium 8.9 mg/dL (8.4-10.2) 01/09/17 20:58 Total Creatine Kinase 91 units/L (30-135) 01/09/17 20:58 CK-MB (CK-2) 3.2 ng/mL (0.0-4.0) 01/09/17 20:58 CK-MB (CK-2) Rel Index 3.5 (0-4) 01/09/17 20:58 Troponin T 0.025 ng/mL (0.00-0.029) 01/09/17 20:58 Triglycerides 49 mg/dL (2-149) 01/10/17 02:21 Cholesterol 116 mg/dL (50-199) 01/10/17 02:21 LDL Cholesterol Direct 60 mg/dL (50-130) 01/10/17 02:21 HDL Cholesterol 47 mg/dL (40-59) 01/10/17 02:21 Cholesterol/HDL Ratio 2.46 % 01/10/17 02:21 Urine Color Yellow (Yellow) 01/09/17 21:51 Urine Turbidity Clear (Clear) 01/09/17 21:51 Urine pH 5.0 (5.0-7.0) 01/09/17 21:51 Ur Specific [place] 1.009 (1.003-1.030) 01/09/17 21:51 Urine Protein <15 mg/dl mg/dL (Negative) 01/09/17 21:51 Urine Glucose (UA) Neg mg/dL (Negative) 01/09/17 21:51 Urine Ketones Neg mg/dL (Negative) 01/09/17 21:51 Urine Blood Neg (Negative) 01/09/17 21:51 Urine Nitrite Neg (Negative) 01/09/17 21:51 Urine Bilirubin Neg (Negative) 01/09/17 21:51 Urine Urobilinogen < 2.0 mg/dL (<2.0) 01/09/17 21:51 Ur Leukocyte Esterase Neg (Negative) 01/09/17 21:51 Urine WBC (Auto) 0.0 /HPF (0.0-6.0) 01/09/17 21:51 Urine RBC (Auto) 0.0 /HPF (0.0-6.0) 01/09/17 21:51
[2017-01-10] MEDS ORDERED: NOVOLOG SUB-Q SCH (22:00)
[2017-01-10] MEDS: ZOCOR PO SCH (22:11)
--- NOTE | 2017-01-11 01:39 | Cat Scan Report ---
FINAL REPORT PROCEDURE: CT CERVICAL SPINE WO CON TECHNIQUE: Computerized tomography of the cervical spine was performed from the skull base to T1 without contrast material. HISTORY: Neck pain, possible fracture COMPARISON: No prior studies are available for comparison. FINDINGS: There is mild motion artifact on this study. The heights of the vertebral segments are maintained. There is significant loss of disc space height at the C3-4, C4-5, C5-6 and C6-7 levels. Moderate spur formation off of the vertebral bodies and the facets is identified from the C2 through the C7 vertebral levels. Mild circumferential bulging discs are identified at the C3-4, C4-5, C5-6 and C6-7 levels. This combined with spur formation causes some impingement upon the cervical cord at all levels. There is bilateral neuroforamen stenosis at all levels. There is no evidence of an acute fracture or dislocation of the cervical spine. If further evaluation is required MRI may be appropriate. IMPRESSION: There is no evidence of an acute fracture or dislocation of the cervical spine. Minimal motion artifact is identified on this study. 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 Minimal spinal canal stenosis identified from the C3-4 through the C6-7 levels. If further evaluation of the cervical spine is required MRI may be of benefit..
[2017-01-11] MEDS: PLAVIX PO SCH (10:26)
[2017-01-11] MEDS: LOVENOX SUB-Q SCH (10:26)
--- NOTE | 2017-01-11 11:11 | Progress Note ---
Assessment and Plan Assessment and plan: 1. Acute CVA. MRI revealed acute infarctions involving the right frontal lobe. Normal MRA. Echocardiogram revealed global left ventricular systolic function at lower limits of normal with an EF of 50-55%. There is no nasal septal hypertrophy without evidence of systolic anterior motion. Moderate concentric left ventricular hypertrophy and mild to moderate aortic stenosis. There is also moderate to severe mitral regurgitation and moderate tricuspid regurgitation. The right ventricular systolic pressure is calculated at 65 mmHg with evidence of severe pulmonary hypertension. Carotid ultrasound less than 50% stenosis bilaterally. Await PT evaluation. 2. ? C2 fracture. MRI reveals abnormal signal along the dens suspected with mild anterior angulation and increase surrounding complex or soft tissue signal suspicious for a fracture. However, cervical CT scan was found to be negative. 3. Severe pulmonary hypertension. Consider pulmonary consultation. 4. Diabetes mellitus type II. Continue sliding-scale and Accu-Cheks. 5. Hypertension. Resume antihypertensive medications. 6. Anemia. Continue to follow H&H. History Interval history: 86-year-old [place] female with past medical history significant for diabetes, GERD, hypertension, recent left knee replacement presented from the intermediate to the emergency department for complaints of transient slurred speech and confusion. Patient was admitted with diagnosis of acute CVA. Hospitalist Physical - Constitutional Vitals: Temp Pulse Resp BP Pulse Ox 99.2 F 85 15 131/74 100 01/11/17 07:45 01/11/17 07:45 01/11/17 07:45 01/11/17 07:45 01/11/17 07:45 General appearance: Present: no acute distress, well-nourished - EENT Eyes: Present: PERRL, EOM intact ENT: hearing intact, clear oral mucosa, dentition normal - Neck Neck: Present: supple, normal ROM - Respiratory Respiratory effort: normal Respiratory: bilateral: CTA - Cardiovascular Rhythm: regular Heart Sounds: Present: S1 & S2. Absent: gallop, rub - Extremities Extremities: no ischemia, No edema, Full ROM - Abdominal General gastrointestinal: soft, non-tender, non-distended, normal bowel sounds - Integumentary Integumentary: Present: clear, warm, dry - Neurologic Neurologic: CNII-XII intact, moves all extremities Results - Labs CBC & Chem 7: 01/09/17 20:58 01/09/17 20:58 Labs: Laboratory Last Values WBC 7.5 K/mm3 (4.5-11.0) 01/09/17 20:58 RBC 3.38 M/mm3 (3.65-5.03) L 01/09/17 20:58 Hgb 9.5 gm/dl (10.1-14.3) L 01/09/17 20:58 Hct 29.2 % (30.3-42.9) L 01/09/17 20:58 MCV 86 fl (79-97) 01/09/17 20:58 MCH 28 pg (28-32) 01/09/17 20:58 MCHC 32 % (30-34) 01/09/17 20:58 RDW 15.3 % (13.2-15.2) H 01/09/17 20:58 Plt Count 392 K/mm3 (140-440) 01/09/17 20:58 Lymph % (Auto) 21.1 % (13.4-35.0) 01/09/17 20:58 [place] % (Auto) 8.1 % (0.0-7.3) H 01/09/17 20:58 Eos % (Auto) 2.1 % (0.0-4.3) 01/09/17 20:58 Baso % (Auto) 0.6 % (0.0-1.8) 01/09/17 20:58 Lymph # 1.6 K/mm3 (1.2-5.4) 01/09/17 20:58 [place] # 0.6 K/mm3 (0.0-0.8) 01/09/17 20:58 Eos # 0.2 K/mm3 (0.0-0.4) 01/09/17 20:58 Baso # 0.0 K/mm3 (0.0-0.1) 01/09/17 20:58 Seg Neutrophils % 68.1 % (40.0-70.0) 01/09/17 20:58 Seg Neutrophils # 5.1 K/mm3 (1.8-7.7) 01/09/17 20:58 PT 13.1 Sec. (12.2-14.9) 01/09/17 20:58 INR 1.00 (0.87-1.13) 01/09/17 20:58 APTT 22.0 Sec. (24.2-36.6) L 01/09/17 20:58 Sodium 130 mmol/L (137-145) L 01/09/17 20:58 Potassium 4.4 mmol/L (3.6-5.0) 01/09/17 20:58 Chloride 92.9 mmol/L (98-107) L 01/09/17 20:58 Carbon Dioxide 22 mmol/L (22-30) 01/09/17 20:58 Anion Gap 20 mmol/L 01/09/17 20:58 BUN 29 mg/dL (7-17) H 01/09/17 20:58 Creatinine 0.9 mg/dL (0.7-1.2) 01/09/17 20:58 Estimated GFR > 60 ml/min 01/09/17 20:58 BUN/Creatinine Ratio 32.22 % 01/09/17 20:58 Glucose 152 mg/dL (65-100) H 01/09/17 20:58 POC Glucose 144 (70-105) H 01/11/17 05:51 Hemoglobin A1c 9.1 % (4-6) H 01/10/17 02:21 Calcium 8.9 mg/dL (8.4-10.2) 01/09/17 20:58 Total Creatine Kinase 91 units/L (30-135) 01/09/17 20:58 CK-MB (CK-2) 3.2 ng/mL (0.0-4.0) 01/09/17 20:58 CK-MB (CK-2) Rel Index 3.5 (0-4) 01/09/17 20:58 Troponin T 0.025 ng/mL (0.00-0.029) 01/09/17 20:58 Triglycerides 49 mg/dL (2-149) 01/10/17 02:21 Cholesterol 116 mg/dL (50-199) 01/10/17 02:21 LDL Cholesterol Direct 60 mg/dL (50-130) 01/10/17 02:21 HDL Cholesterol 47 mg/dL (40-59) 01/10/17 02:21 Cholesterol/HDL Ratio 2.46 % 01/10/17 02:21 Urine Color Yellow (Yellow) 01/09/17 21:51 Urine Turbidity Clear (Clear) 01/09/17 21:51 Urine pH 5.0 (5.0-7.0) 01/09/17 21:51 Ur Specific [place] 1.009 (1.003-1.030) 01/09/17 21:51 Urine Protein <15 mg/dl mg/dL (Negative) 01/09/17 21:51 Urine Glucose (UA) Neg mg/dL (Negative) 01/09/17 21:51 Urine Ketones Neg mg/dL (Negative) 01/09/17 21:51 Urine Blood Neg (Negative) 01/09/17 21:51 Urine Nitrite Neg (Negative) 01/09/17 21:51 Urine Bilirubin Neg (Negative) 01/09/17 21:51 Urine Urobilinogen < 2.0 mg/dL (<2.0) 01/09/17 21:51 Ur Leukocyte Esterase Neg (Negative) 01/09/17 21:51 Urine WBC (Auto) 0.0 /HPF (0.0-6.0) 01/09/17 21:51 Urine RBC (Auto) 0.0 /HPF (0.0-6.0) 01/09/17 21:51
[2017-01-11] MEDS: TYLENOL PO PRN ×2 (13:38→22:30)
[2017-01-11] MEDS: NOVOLOG SUB-Q SCH ×3 (13:39→22:36)
[2017-01-11] MEDS: ZOCOR PO SCH (22:31)
[2017-01-12] MEDS: NOVOLOG SUB-Q SCH ×4 (07:30→22:33)
[2017-01-12] MEDS: LOVENOX SUB-Q SCH (09:50)
[2017-01-12] MEDS: PLAVIX PO SCH (09:50)
--- NOTE | 2017-01-12 10:09 | Progress Note ---
Assessment and Plan Assessment and plan: 1. Acute CVA. MRI revealed acute infarctions involving the right frontal lobe. Normal MRA. Echocardiogram revealed global left ventricular systolic function at lower limits of normal with an EF of 50-55%. There is basal septal hypertrophy without evidence of systolic anterior motion. Moderate concentric left ventricular hypertrophy and mild to moderate aortic stenosis. There is also moderate to severe mitral regurgitation and moderate tricuspid regurgitation. The right ventricular systolic pressure is calculated at 65 mmHg with evidence of severe pulmonary hypertension. Carotid ultrasound less than 50% stenosis bilaterally. Await PT evaluation to determine discharge plan. 2. Severe mitral regurgitation. Consider cardiology consultation. However, this may be followed up as an outpatient. 3. Severe pulmonary hypertension. Consider pulmonary consultation. However, this may be followed up as an outpatient. 4. Diabetes mellitus type II. Continue sliding-scale and Accu-Cheks. 5. Hypertension. Resume antihypertensive medications. 6. Anemia. Continue to follow H&H. History Interval history: 86-year-old Maldivian female with past medical history significant for diabetes, GERD, hypertension, recent left knee replacement presented from the long term to the emergency department for complaints of transient slurred speech and confusion. Patient was admitted with diagnosis of acute CVA. Patient reports generalized weakness and poor appetite this morning. Hospitalist Physical - Constitutional Vitals: Temp Pulse Resp BP Pulse Ox 98.6 F 91 H 22 171/71 98 01/12/17 07:20 01/12/17 07:20 01/12/17 07:20 01/12/17 07:20 01/12/17 07:20 General appearance: Present: no acute distress, well-nourished - EENT Eyes: Present: PERRL, EOM intact ENT: hearing intact, clear oral mucosa, dentition normal - Neck Neck: Present: supple, normal ROM - Respiratory Respiratory effort: normal Respiratory: bilateral: CTA - Cardiovascular Rhythm: regular Heart Sounds: Present: S1 & S2. Absent: gallop, rub - Extremities Extremities: no ischemia, No edema, Full ROM - Abdominal General gastrointestinal: soft, non-tender, non-distended, normal bowel sounds - Integumentary Integumentary: Present: clear, warm, dry - Neurologic Neurologic: CNII-XII intact, moves all extremities Results - Labs CBC & Chem 7: 01/09/17 20:58 01/09/17 20:58 Labs: Laboratory Last Values WBC 7.5 K/mm3 (4.5-11.0) 01/09/17 20:58 RBC 3.38 M/mm3 (3.65-5.03) L 01/09/17 20:58 Hgb 9.5 gm/dl (10.1-14.3) L 01/09/17 20:58 Hct 29.2 % (30.3-42.9) L 01/09/17 20:58 MCV 86 fl (79-97) 01/09/17 20:58 MCH 28 pg (28-32) 01/09/17 20:58 MCHC 32 % (30-34) 01/09/17 20:58 RDW 15.3 % (13.2-15.2) H 01/09/17 20:58 Plt Count 392 K/mm3 (140-440) 01/09/17 20:58 Lymph % (Auto) 21.1 % (13.4-35.0) 01/09/17 20:58 [place] % (Auto) 8.1 % (0.0-7.3) H 01/09/17 20:58 Eos % (Auto) 2.1 % (0.0-4.3) 01/09/17 20:58 Baso % (Auto) 0.6 % (0.0-1.8) 01/09/17 20:58 Lymph # 1.6 K/mm3 (1.2-5.4) 01/09/17 20:58 [place] # 0.6 K/mm3 (0.0-0.8) 01/09/17 20:58 Eos # 0.2 K/mm3 (0.0-0.4) 01/09/17 20:58 Baso # 0.0 K/mm3 (0.0-0.1) 01/09/17 20:58 Seg Neutrophils % 68.1 % (40.0-70.0) 01/09/17 20:58 Seg Neutrophils # 5.1 K/mm3 (1.8-7.7) 01/09/17 20:58 PT 13.1 Sec. (12.2-14.9) 01/09/17 20:58 INR 1.00 (0.87-1.13) 01/09/17 20:58 APTT 22.0 Sec. (24.2-36.6) L 01/09/17 20:58 Sodium 130 mmol/L (137-145) L 01/09/17 20:58 Potassium 4.4 mmol/L (3.6-5.0) 01/09/17 20:58 Chloride 92.9 mmol/L (98-107) L 01/09/17 20:58 Carbon Dioxide 22 mmol/L (22-30) 01/09/17 20:58 Anion Gap 20 mmol/L 01/09/17 20:58 BUN 29 mg/dL (7-17) H 01/09/17 20:58 Creatinine 0.9 mg/dL (0.7-1.2) 01/09/17 20:58 Estimated GFR > 60 ml/min 01/09/17 20:58 BUN/Creatinine Ratio 32.22 % 01/09/17 20:58 Glucose 152 mg/dL (65-100) H 01/09/17 20:58 POC Glucose 129 (70-105) H 01/12/17 05:31 Hemoglobin A1c 9.1 % (4-6) H 01/10/17 02:21 Calcium 8.9 mg/dL (8.4-10.2) 01/09/17 20:58 Total Creatine Kinase 91 units/L (30-135) 01/09/17 20:58 CK-MB (CK-2) 3.2 ng/mL (0.0-4.0) 01/09/17 20:58 CK-MB (CK-2) Rel Index 3.5 (0-4) 01/09/17 20:58 Troponin T 0.025 ng/mL (0.00-0.029) 01/09/17 20:58 Triglycerides 49 mg/dL (2-149) 01/10/17 02:21 Cholesterol 116 mg/dL (50-199) 01/10/17 02:21 LDL Cholesterol Direct 60 mg/dL (50-130) 01/10/17 02:21 HDL Cholesterol 47 mg/dL (40-59) 01/10/17 02:21 Cholesterol/HDL Ratio 2.46 % 01/10/17 02:21 Urine Color Yellow (Yellow) 01/09/17 21:51 Urine Turbidity Clear (Clear) 01/09/17 21:51 Urine pH 5.0 (5.0-7.0) 01/09/17 21:51 Ur Specific [place] 1.009 (1.003-1.030) 01/09/17 21:51 Urine Protein <15 mg/dl mg/dL (Negative) 01/09/17 21:51 Urine Glucose (UA) Neg mg/dL (Negative) 01/09/17 21:51 Urine Ketones Neg mg/dL (Negative) 01/09/17 21:51 Urine Blood Neg (Negative) 01/09/17 21:51 Urine Nitrite Neg (Negative) 01/09/17 21:51 Urine Bilirubin Neg (Negative) 01/09/17 21:51 Urine Urobilinogen < 2.0 mg/dL (<2.0) 01/09/17 21:51 Ur Leukocyte Esterase Neg (Negative) 01/09/17 21:51 Urine WBC (Auto) 0.0 /HPF (0.0-6.0) 01/09/17 21:51 Urine RBC (Auto) 0.0 /HPF (0.0-6.0) 01/09/17 21:51
[2017-01-12] MEDS: ZOCOR PO SCH (22:34)
[2017-01-13] MEDS: NOVOLOG SUB-Q SCH ×4 (07:30→22:00)
[2017-01-13] MEDS: PLAVIX PO SCH (10:07)
[2017-01-13] MEDS: LOVENOX SUB-Q SCH (10:07)
--- NOTE | 2017-01-13 10:33 | Progress Note ---
Assessment and Plan Assessment and plan: 1. Acute CVA. MRI revealed acute infarctions involving the right frontal lobe. Normal MRA. Echocardiogram revealed global left ventricular systolic function at lower limits of normal with an EF of 50-55%. There is basal septal hypertrophy without evidence of systolic anterior motion. Moderate concentric left ventricular hypertrophy and mild to moderate aortic stenosis. There is also moderate to severe mitral regurgitation and moderate tricuspid regurgitation. The right ventricular systolic pressure is calculated at 65 mmHg with evidence of severe pulmonary hypertension. Carotid ultrasound less than 50% stenosis bilaterally. Await PT evaluation to determine discharge plan. 2. Severe mitral regurgitation. Consider cardiology consultation. However, this may be followed up as an outpatient. 3. Severe pulmonary hypertension. Consider pulmonary consultation. However, this may be followed up as an outpatient. 4. Diabetes mellitus type II. Continue sliding-scale and Accu-Cheks. 5. Hypertension. Resume antihypertensive medications. 6. Anemia. Continue to follow H&H. 7. Left knee and calf pain. Check Doppler studies History Interval history: 86-year-old Lao female with past medical history significant for diabetes, GERD, hypertension, recent left [facility] for complaints of transient slurred speech and confusion. Patient was admitted with diagnosis of acute CVA. Patient complains of left knee swelling and pain in the left calf. Hospitalist Physical - Constitutional Vitals: Temp Pulse Resp BP Pulse Ox 98.2 F 88 20 159/78 98 01/13/17 08:43 01/13/17 08:43 01/13/17 08:43 01/13/17 08:43 01/13/17 08:43 General appearance: Present: no acute distress, well-nourished - EENT Eyes: Present: PERRL, EOM intact ENT: hearing intact, clear oral mucosa, dentition normal - Neck Neck: Present: supple, normal ROM - Respiratory Respiratory effort: normal Respiratory: bilateral: CTA - Cardiovascular Rhythm: regular Heart Sounds: Present: S1 & S2. Absent: gallop, rub - Extremities Extremities: no ischemia, Full ROM Extremity abnormal: edema (left knee, calf pain) - Abdominal General gastrointestinal: soft, non-tender, non-distended, normal bowel sounds - Integumentary Integumentary: Present: clear, warm, dry - Neurologic Neurologic: CNII-XII intact, moves all extremities Results - Labs CBC & Chem 7: 01/09/17 20:58 01/09/17 20:58 Labs: Laboratory Last Values WBC 7.5 K/mm3 (4.5-11.0) 01/09/17 20:58 RBC 3.38 M/mm3 (3.65-5.03) L 01/09/17 20:58 Hgb 9.5 gm/dl (10.1-14.3) L 01/09/17 20:58 Hct 29.2 % (30.3-42.9) L 01/09/17 20:58 MCV 86 fl (79-97) 01/09/17 20:58 MCH 28 pg (28-32) 01/09/17 20:58 MCHC 32 % (30-34) 01/09/17 20:58 RDW 15.3 % (13.2-15.2) H 01/09/17 20:58 Plt Count 392 K/mm3 (140-440) 01/09/17 20:58 Lymph % (Auto) 21.1 % (13.4-35.0) 01/09/17 20:58 [place] % (Auto) 8.1 % (0.0-7.3) H 01/09/17 20:58 Eos % (Auto) 2.1 % (0.0-4.3) 01/09/17 20:58 Baso % (Auto) 0.6 % (0.0-1.8) 01/09/17 20:58 Lymph # 1.6 K/mm3 (1.2-5.4) 01/09/17 20:58 [place] # 0.6 K/mm3 (0.0-0.8) 01/09/17 20:58 Eos # 0.2 K/mm3 (0.0-0.4) 01/09/17 20:58 Baso # 0.0 K/mm3 (0.0-0.1) 01/09/17 20:58 Seg Neutrophils % 68.1 % (40.0-70.0) 01/09/17 20:58 Seg Neutrophils # 5.1 K/mm3 (1.8-7.7) 01/09/17 20:58 PT 13.1 Sec. (12.2-14.9) 01/09/17 20:58 INR 1.00 (0.87-1.13) 01/09/17 20:58 APTT 22.0 Sec. (24.2-36.6) L 01/09/17 20:58 Sodium 130 mmol/L (137-145) L 01/09/17 20:58 Potassium 4.4 mmol/L (3.6-5.0) 01/09/17 20:58 Chloride 92.9 mmol/L (98-107) L 01/09/17 20:58 Carbon Dioxide 22 mmol/L (22-30) 01/09/17 20:58 Anion Gap 20 mmol/L 01/09/17 20:58 BUN 29 mg/dL (7-17) H 01/09/17 20:58 Creatinine 0.9 mg/dL (0.7-1.2) 01/09/17 20:58 Estimated GFR > 60 ml/min 01/09/17 20:58 BUN/Creatinine Ratio 32.22 % 01/09/17 20:58 Glucose 152 mg/dL (65-100) H 01/09/17 20:58 POC Glucose 154 (70-105) H 01/13/17 05:03 Hemoglobin A1c 9.1 % (4-6) H 01/10/17 02:21 Calcium 8.9 mg/dL (8.4-10.2) 01/09/17 20:58 Total Creatine Kinase 91 units/L (30-135) 01/09/17 20:58 CK-MB (CK-2) 3.2 ng/mL (0.0-4.0) 01/09/17 20:58 CK-MB (CK-2) Rel Index 3.5 (0-4) 01/09/17 20:58 Troponin T 0.025 ng/mL (0.00-0.029) 01/09/17 20:58 Triglycerides 49 mg/dL (2-149) 01/10/17 02:21 Cholesterol 116 mg/dL (50-199) 01/10/17 02:21 LDL Cholesterol Direct 60 mg/dL (50-130) 01/10/17 02:21 HDL Cholesterol 47 mg/dL (40-59) 01/10/17 02:21 Cholesterol/HDL Ratio 2.46 % 01/10/17 02:21 Urine Color Yellow (Yellow) 01/09/17 21:51 Urine Turbidity Clear (Clear) 01/09/17 21:51 Urine pH 5.0 (5.0-7.0) 01/09/17 21:51 Ur Specific [place] 1.009 (1.003-1.030) 01/09/17 21:51 Urine Protein <15 mg/dl mg/dL (Negative) 01/09/17 21:51 Urine Glucose (UA) Neg mg/dL (Negative) 01/09/17 21:51 Urine Ketones Neg mg/dL (Negative) 01/09/17 21:51 Urine Blood Neg (Negative) 01/09/17 21:51 Urine Nitrite Neg (Negative) 01/09/17 21:51 Urine Bilirubin Neg (Negative) 01/09/17 21:51 Urine Urobilinogen < 2.0 mg/dL (<2.0) 01/09/17 21:51 Ur Leukocyte Esterase Neg (Negative) 01/09/17 21:51 Urine WBC (Auto) 0.0 /HPF (0.0-6.0) 01/09/17 21:51 Urine RBC (Auto) 0.0 /HPF (0.0-6.0) 01/09/17 21:51
[2017-01-13] MEDS: ZOCOR PO SCH (21:05)
[2017-01-14 07:24] VITALS: BP 133/74
--- NOTE | 2017-01-14 07:55 | Discharge Summary ---
Providers - Providers Date of Admission: 01/09/17 22:56 Date of discharge: 01/14/17 Attending physician: HOWARD LAUREANO 01/11/17 09:41 Physical Therapy Evaluation and Treat [CONS] Routine Comment: Reason For Exam: CVA Primary care physician: TON CONTAINER SHIPPER Hospitalization Reason for admission: CVA Condition: Stable Hospital course: 86-year-old Uz[place] female with past medical history significant for diabetes, GERD, hypertension, recent left knee replacement presented from the longterm to the emergency department for complaints of transient slurred speech and confusion. The patient has 2 episodes. Patient was admitted with diagnosis of CVA. MRI revealed acute infarctions involving the right frontal lobe. MRA was normal. MRI reveals abnormal signal along the dens suspected with mild anterior angulation and increase surrounding complex or soft tissue signal suspicious for a fracture. However, cervical CT scan was found to be negative. Echocardiogram revealed global left ventricular systolic function at lower limits of normal with an EF of 50-55%. There is no nasal septal hypertrophy without evidence of systolic anterior motion. Moderate concentric left ventricular hypertrophy and mild to moderate aortic stenosis. There is also moderate to severe mitral regurgitation and moderate tricuspid regurgitation. The right ventricular systolic pressure is calculated at 65 mmHg with evidence of severe pulmonary hypertension. Carotid ultrasound less than 50% stenosis bilaterally. Patient also complained of left lower extremity pain and swelling in the left knee and calf. Doppler ultrasound was found be negative for DVT. Patient was evaluated by PT/OT. Case management was consulted for discharge. Patient will be treated with Plavix and Zocor and discharged back to the rehabilitation facility. The dictated discharge time 35 minutes. Disposition: DC/TX SNF W [facility] - Discharge Diagnoses (1) Acute CVA (cerebrovascular accident) Status: Acute (2) Diabetes Status: Acute Qualifiers: Diabetes mellitus type: D Diabetes mellitus complication status: D Diabetes mellitus complication detail: D Diabetic retinopathy severity: D Proliferative retinopathy type: P Diabetes mellitus macular edema: D Diabetes mellitus correction insulin use: D Laterality: L Chronic kidney disease stage: C Core Measure Documentation - Palliative Care Palliative Care/ Comfort Measures: Not Applicable - Core Measures Any of the following diagnoses?: stroke - Stroke Discharge Requirements Statin for LDL = or >70 mg/dl on DC: Yes Anticoag for atrial fib/atrial flutter: Not Applicable Reason for no anticoag for AF/F on DC: Not Indicated Antithrombotic for ischemic stroke: Yes Exam - Constitutional Vitals: Temp Pulse Resp BP Pulse Ox 98.6 F 89 12 133/74 97 01/14/17 07:23 01/14/17 07:23 01/14/17 07:23 01/14/17 07:23 01/14/17 07:23 General appearance: Present: no acute distress, well-nourished - EENT Eyes: Present: PERRL ENT: hearing intact, clear oral mucosa - Neck Neck: Present: supple, normal ROM - Respiratory Respiratory effort: normal Respiratory: bilateral: CTA - Cardiovascular Heart Sounds: Present: S1 & S2. Absent: rub, click - Extremities Extremities: pulses symmetrical, No edema Peripheral Pulses: within normal limits - Abdominal General gastrointestinal: Present: soft, non-tender, non-distended, normal bowel sounds Female genitourinary: Present: normal - Integumentary Integumentary: Present: clear, warm, dry - Musculoskeletal Musculoskeletal: gait normal, strength equal bilaterally - Psychiatric Psychiatric: appropriate mood/affect, intact judgment & insight - Neurologic Neurologic: CNII-XII intact, moves all extremities Plan Activity: no restrictions Weight Bearing Status: Weight Bear as Tolerated Diet: diabetic Follow up with: PRIMARY CAREMD [Primary Care Provider] - 7 Days
[2017-01-14] MEDS: NOVOLOG SUB-Q SCH ×2 (07:58→11:30)
--- NOTE | 2017-01-14 08:26 | Query-Altered Level of Consc. ---
Mariann Bundy Date:__01/14/17 Shrimp Peeler/CDS:Gracie Silva Phone#:_[phone] Exercise your independent professional judgment when responding to this query. Questions asked do not imply a particular answer is desired or expected. We greatly appreciate your clarification on this issue. Clinical Documentation States: 86-year-old Ch[place] female with past medical history significant for diabetes, GERD, hypertension, recent left knee replacement presented from the correction to the emergency department for complaints of transient slurred speech and confusion. Clinical Findings Show: Acute CVA. MRI revealed acute infarctions involving the right frontal lobe. Na: 130 Please provide an appropriate diagnosis clarifying the Etiology and Acuity of this clinical scenario: [ ] Metabolic Encephalopathy [ ] Toxic Encephalopathy [ ] Toxic - Metabolic Encephalopathy [ ] Septic Encephalopathy with Sepsis [ ] Septic Encephalopathy without Sepsis [ ] Acute Hepatic Encephalopathy [ ] Subacute Hepatic Encephalopathy [ x] Encephalopathy [ ] Other: [ ] Unable To Determine [ ]Comment/Explanation: Present on Admission: [ x] Yes (Y) [ ] Clinically undeterminable (W) [ ] No (N) Please also document response in your Progress Notes and/or Discharge Summary and indicate if the condition was present on admission. MTDD
[2017-01-14] MEDS: LOVENOX SUB-Q SCH (10:02)
[2017-01-14] MEDS: PLAVIX PO SCH (10:03)
--- NOTE | 2017-01-15 08:04 | Vascular Lab Report ---
Left Lower Extremity Venous Duplex Study: Reason for Exam: Pain of the left lower extremity. Comments on the Right: A limited duplex study was done of the proximal veins of the right lower extremity. All veins visualized are freely compressible without evidence of internal echogenicity. Flow is spontaneous and phasic throughout. No evidence of acute or chronic thrombus is seen in any of the vessels visualized. Comments on the Left: All veins visualized are freely compressible without evidence of internal echogenicity. Flow is spontaneous and phasic throughout. No evidence of acute or chronic thrombus is seen in any of the vessels visualized. Soft tissue density could be consistent with knee effusion. Impression: No evidence of acute or chronic deep venous thrombosis in the left lower extremity.
--- NOTE | 2017-01-16 08:25 | Vascular Lab Report ---
CAROTID DUPLEX STUDY: RIGHT PSVEDV CCA PROX: 8312 CCA DIST: 62 8 ICA PROX: 6412 ICA MID: 7618 ICA DIST: 8721 ECA: 73 VERT: 31 5 LEFT PSVEDV CCA PROX: 96 8 CCA DIST: 6915 ICA PROX: 6912 ICA MID: 7219 ICA DIST: 6012 ECA: 74 VERT: 30 7 REASON FOR EXAM: TIA. COMMENTS ON THE RIGHT: Doppler frequency analysis is consistent with 16 to 49 percent diameter reduction of the internal carotid artery. Minimal amount of plaque is seen. The common carotid artery is patent. The external carotid artery is patent. The vertebral artery has antegrade flow. COMMENTS ON THE LEFT: Doppler frequency analysis is consistent with 16 to 49 percent diameter reduction of the internal carotid artery. Minimal amount of plaque is seen. The common carotid artery is patent. The external carotid artery is patent. The vertebral artery has antegrade flow. IMPRESSION: Less than 50% diameter reduction in the internal carotid arteries bilaterally. Consider repeat carotid artery duplex in 12 months.
== END 2017-01-14 13:23 | DRG 64 ==
LOC: ED 19:54 → 3A 22:56
PROVIDERS: ADMIT Internal Medicine; ATTEND Hospitalist
PROC: 3E0234Z Introduction of Serum, Toxoid and Vaccine into Muscle, Percutaneous Approach (ICD-10-PCS; principal; 2017-01-10)
DX: I63.9 Cerebral infarction, unspecified (principal); G93.49 Other encephalopathy; E87.1 Hypo-osmolality and hyponatremia; R47.9 Unspecified speech disturbances; I27.2 Other secondary pulmonary hypertension; Z23 Encounter for immunization; E11.9 Type 2 diabetes mellitus without complications; K21.9 Gastro-esophageal reflux disease without esophagitis; I08.3 Combined rheumatic disorders of mitral, aortic and tricuspid valves; I10 Essential (primary) hypertension; E86.0 Dehydration; D64.9 Anemia, unspecified; Z96.652 Presence of left artificial knee joint; Z79.82 Long term (current) use of aspirin; Z79.4 Long term (current) use of insulin
CPT/HCPCS: 36415; 70450; 70544; 70547; 70551; 72125; 80048; 80061; 81001; 82550; 82553; 82962; 83036; 84484; 85025; 85610; 85730; 90686; 90732; 93005; 93010; 93880; C8929; G8978-GP; G8979-GP; J1650; J1815; J7030; Q9957